=== PATIENT | male | born 1995 | race Caucasian/White ===

== ENCOUNTER 2017-12-17 20:26 | Emergency (ER) | payer SELFPAY ==
[2017-12-17 21:44] VITALS: BP 89/51; PULSE 52; RESP 16; TEMP 98.7; O2SAT 98
[2017-12-17] MEDS ORDERED: TETANUS/DIPHTHERIA TOXOID ADULT 0.5 ML VIAL IM ONE (22:30)
--- NOTE | 2017-12-17 22:32 | PD ---
HPI Chief Complaint: Laceration/Skin Injury Time Seen by Provider: 21:58 Travel History International Travel<30 days: No Contact w/Intl Traveler<30days: No Traveled to known affect area: No History of Present Illness HPI Patient is a 21-year-old male presenting to emergency for evaluation of a laceration to his left third finger. Patient states that he tripped on the wet concrete falling onto his hand, cutting out a piece of glass that was on the ground. Patient was at work when this happened. He denies any significant pain. His tetanus vaccine is not up-to-date. Symptom onset was sudden, symptom severity is mild. There are no alleviating factors. He reports pain is a 3 out of 10 and states it sore. [facility] Past Medical History Medical History: Denies Significant Hx Diminished Hearing: No Tetanus Vaccination: Unknown Past Surgical History Surgical History: No Previous Surgery Social History Alcohol Use: Yes (SOCAILLY ) Tobacco Use: No Substance Use: No Allergies-Medications (Allergen,Severity, Reaction): Coded Allergies: No Known Allergies (Unverified , 12/17/17) Reported Meds & Prescriptions Reported Meds & Active Scripts Active No Active Prescriptions or Reported Medications Review of Systems Except as stated in HPI: all other systems reviewed are Neg Skin: Positive Other (Laceration) Physical Exam Narrative GENERAL: Well-developed, well-nourished, well-appearing male. Presenting in no acute distress. SKIN: Warm and dry. 1 cm superficial laceration to the left third MCP joint. Base of wound is well visualized, no foreign body identified. HEAD: Normocephalic. EYES: No scleral icterus. No injection or drainage. NECK: Supple, trachea midline. No JVD or lymphadenopathy. CARDIOVASCULAR: Regular rate and rhythm without murmurs, gallops, or rubs. RESPIRATORY: Breath sounds equal bilaterally. No accessory muscle use. GASTROINTESTINAL: Abdomen soft, non-tender, nondistended. MUSCULOSKELETAL: No cyanosis, or edema. BACK: Nontender without obvious deformity. No CVA tenderness. Data Data Last Documented VS Vital Signs Date Time Temp Pulse Resp B/P (MAP) Pulse Ox O2 Delivery O2 Flow Rate FiO2 12/17/17 21:44 98.7 52 16 89/51 (64) 98 MDM Medical Decision Making Medical Screen Exam Complete: Yes Emergency Medical Condition: Yes Interpretation(s) Vital Signs Date Time Temp Pulse Resp B/P (MAP) Pulse Ox O2 Delivery O2 Flow Rate FiO2 12/17/17 21:44 98.7 52 16 89/51 (64) 98 Differential Diagnosis Laceration versus retained foreign body versus cellulitis versus other Narrative Course Patient is well-appearing 21-year-old male presenting for evaluation of a laceration that he sustained while at work. Patient is neurovascularly intact. Please see procedure report for laceration repair. Patient's tetanus vaccine was updated in the emergency department. He was educated on care of his stitches as well as signs and symptoms of infection. He was encouraged to return to emergency department in 1 week to 10 days to have stitches removed. He was advised to keep hand clean and dry, avoid submersion of water. He verbalized understanding of instructions. Patient stable for discharge. Procedures Procedure Narrative LACERATION LOCATION: Left third MCP joint on the palmar aspect LENGTH: 1 centimeter NUMBER OF STITCHES/SHANTANU: 3 stitches REPAIR: The area of the laceration was prepped with Betadine and sterilely draped. The laceration was infiltrated with 1% lidocaine. The wound was copiously irrigated and explored without evidence of foreign body, tendon injury or neurovascular injury. The wound was closed using 4-0 Prolene. This was a 1 layer repair. A sterile dressing was applied. The patient was advised to keep the dressing clean and dry. Patient tolerated the procedure well. Diagnosis Primary Impression: Laceration of hand Qualified Codes: S61.412A - Laceration without foreign body of left hand, initial encounter Referrals: Primary Care Physician 1 week Patient Instructions: Care For Your Stitches (ED), Finger Laceration (ED), General Instructions Additional Instructions: Keep hand clean and dry, avoid submersion in water Keep stitches covered with nonocclusive dressing if there is a chance of soiling Return to emergency department immediately for any new or worsening symptoms Stitches will need to be removed in 7-10 days Med/Other Pt SpecificInfo: No Meds Exist/No RX given Scripts No Active Prescriptions or Reported Meds Disposition: 01 DISCHARGE HOME Condition: Stable Ute Gruber [employer] Dec 17, 2017 22:32
== END 2017-12-17 22:50 | disposition home or self-care (01) ==
LOC: NEPD 20:26
DX: S61.213A Laceration without foreign body of left middle finger without damage to nail, initial encounter (principal); W01.110A Fall on same level from slipping, tripping and stumbling with subsequent striking against sharp glass, initial encounter; Y99.0 Civilian activity done for income or pay; Z23 Encounter for immunization
CPT/HCPCS: 12001; 90471; 90714